=== PATIENT | male | born 1970 | race African-American/Black ===

== ENCOUNTER 2018-11-06 16:19 | Emergency (ER) | payer OTHER ==
[~2018-11-06] VITALS: Ht 167.6 cm; Wt 99.8 kg
[2018-11-06 16:24] VITALS: TEMP 97.2
[2018-11-06 17:25] VITALS: BP 126/81
== END 2018-11-06 17:25 | disposition home or self-care (01) ==
LOC: ED 16:19
DX: M77.11 Lateral epicondylitis, right elbow (principal)
CPT/HCPCS: 96372; 99283; J1885